=== PATIENT | male | born 1955 | race Hispanic/Latino ===

== ENCOUNTER 2017-12-08 12:30 | Emergency (ER) | payer OTHER ==
[~2017-12-08] VITALS: Ht 162.6 cm; Wt 70.3 kg
[2017-12-08 13:11] LABS: BASOPHILS % 0.3 % (0.0-1.0); EOSINOPHILS % 0.2 % (0.0-6.0); HEMATOCRIT 40.7 % (38.2-49.6); HEMOGLOBIN 14.3 g/dL (14.0-18.0); LYMPHOCYTES # (AUTO) 1.9 (1.0-3.2); LYMPHOCYTES % 20.4 % (18.0-39.1); MEAN CORPUSCULAR HEMOGLOBIN 27.9 pg (28-32); MEAN CORPUSCULAR HGB CONC 35.1 g/dL (31-35); MEAN CORPUSCULAR VOLUME 79.5 fL (81-99); MONOCYTES # (AUTO) 0.5 (0.2-0.8); NEUTROPHILS # (AUTO) 6.9 (2.1-6.9); NEUTROPHILS % 73.9 % (38.7-80.0); PLATELET COUNT 259 x10e3/uL (140-360); RED BLOOD COUNT 5.12 x10e6/uL (4.3-5.7); RED CELL DISTRIBUTION WIDTH 11.9 % (11.7-14.4)
[2017-12-08 13:26] LABS: ALBUMIN 4.4 g/dL (3.5-5.0); ALBUMIN/GLOBULIN RATIO 1.1 (0.8-2.0); ANION GAP 17.8 mmol/L (8-16); CALCIUM 10.1 mg/dL (8.4-10.2); CREATININE, SERUM 1.33 mg/dL (0.72-1.25)
[2017-12-08 13:29] LABS: POTASSIUM 2.8 mmol/L (3.5-5.1)
[2017-12-08] MEDS ORDERED: POTASSIUM CHLORIDE 20MEQ/100ML 100 ML IV ONE (13:30)
[2017-12-08] MEDS ORDERED: POTASSIUM CHLORIDE 20 MEQ TAB CR PO ONE ×2 (13:45→18:42)
[2017-12-08] MEDS: POTASSIUM CHLORIDE 20 MEQ TAB CR PO NR ×2 (14:06→14:43)
[2017-12-08] MEDS ORDERED: POTASSIUM CHLORIDE 10MEQ/100ML 100 ML IV ONE (14:15)
[2017-12-08 14:21] LABS: BILIRUBIN,URINE NEGATIVE (NEGATIVE); CLARITY,URINE CLEAR (CLEAR); COLOR,URINE YELLOW (YELLOW); KETONES,URINE 1+ (NEGATIVE); LEUKOCYTE ESTERASE ,URINE NEGATIVE (NEGATIVE); NITRITE,URINE NEGATIVE (NEGATIVE); PROTEIN,URINE DIPSTICK 1+ (NEGATIVE); URINE UROBILINOGEN 0.2 mg/dL (0.2 - 1)
--- NOTE | 2017-12-08 14:21 | Diagnostic Imaging Report ---
PROCEDURE: CHEST SINGLE (PORTABLE) COMPARISON: None. INDICATIONS: HIGH BLOOD SUGAR FINDINGS: No focal airspace consolidation, pleural effusion, or pneumothorax. Cardiomediastinal contour and pulmonary vasculature are within normal limits for portable, AP technique. No acute osseous abnormalities. CONCLUSION: No acute cardiopulmonary abnormality. Dictated by: Emeterio Silva M.D. on 12/08/2017 at 13:31 Electronically approved by: Emeterio Silva M.D. on 12/08/2017 at 13:31
[2017-12-08 14:35] LABS: AMORPHOUS SEDIMENT,URINE FEW (FEW); BACTERIA,URINE FEW /HPF; EPITHELIAL CELLS,URINE FEW /LPF; RBC,URINE 0-5 /HPF (0-5)
[2017-12-08 18:38] LABS: ANION GAP 20.9 mmol/L (8-16); BLOOD UREA NITROGEN 14 mg/dL (7-26); BUN/CREATININE RATIO 13 (6-25); CALCIUM 9.7 mg/dL (8.4-10.2); CARBON DIOXIDE 23 mmol/L (22-29); CHLORIDE 98 mmol/L (98-107); CREATININE, SERUM 1.09 mg/dL (0.72-1.25); EST GLOMERULAR FILTRATION RATE > 60 ML/MIN (60-); GLUCOSE 103 mg/dL (74-118); SODIUM 139 mmol/L (136-145)
[2017-12-08 18:39] LABS: POTASSIUM 2.9 mmol/L (3.5-5.1)
[2017-12-08 19:22] VITALS: BP 143/69
== END 2017-12-08 19:35 | disposition home or self-care (01) ==
LOC: ER 12:30
DX: E11.65 Type 2 diabetes mellitus with hyperglycemia (principal); E87.6 Hypokalemia; I10 Essential (primary) hypertension
CPT/HCPCS: 36415; 71045; 80048; 80053; 81001; 82948; 85025; 93005; 99284